=== PATIENT | male | born 1985 | race Caucasian/White ===

== ENCOUNTER 2018-05-25 15:37 | Emergency (ER) | payer OTHER ==
[2018-05-25] MEDS: IBUPROFEN 600 MG TAB PO (17:07)
== END 2018-05-25 18:00 | disposition home or self-care (01) ==
LOC: E/R 15:37
DX: R07.9 Chest pain, unspecified (principal); J45.909 Unspecified asthma, uncomplicated
CPT/HCPCS: 93005; 99283-25